=== PATIENT | female | born 1965 | race American Indian/Alaskan Native ===

== ENCOUNTER 2018-12-26 08:07 | Day surgery (SDC) | payer BC ==
[~2018-12-26 08:07] MED LIST: ANCEF/STERILE WATER 2 GM/20 ML 2 GM/20 ML SYRINGE IV NR; LACTATED RINGERS 1,000 ML IV SCH; NEURONTIN PO SCH; TYLENOL PO NR
[2018-12-26] MEDS ORDERED: SUBLIMAZE ONE ×2 (08:55→10:15)
[2018-12-26] MEDS ORDERED: XYLOCAINE 1% 20 mL ONE (08:56)
[2018-12-26] MEDS ORDERED: VERSED ONE (08:56)
[2018-12-26] MEDS ORDERED: MARCAINE-EPI 0.5%-1:200,000 INFILTRATI ONE (08:57)
[2018-12-26] MEDS ORDERED: XYLOCAINE MPF 2% ONE (10:15)
[2018-12-26] MEDS ORDERED: ZOFRAN ONE (10:15)
[2018-12-26] MEDS ORDERED: ZEMURON IV ONE (10:15)
[2018-12-26] MEDS ORDERED: DIPRIVAN 10 MG/ML IV ONE (10:16)
[2018-12-26] MEDS ORDERED: KETALAR ONE (10:16)
[2018-12-26] MEDS ORDERED: DECADRON ONE (10:16)
[2018-12-26] MEDS ORDERED: TORADOL ONE (10:16)
[2018-12-26] MEDS ORDERED: ZOFRAN IV PRN (10:50)
[2018-12-26] MEDS ORDERED: DILAUDID IV PRN (10:50)
--- NOTE | 2018-12-26 10:50 | Anesthesia Day of Surgery ---
Anesthesia Day of Surgery - Day of Surgery Patient Examined: Yes Patient H&P Reviewed: Yes Patient is NPO: Yes
--- NOTE | 2018-12-26 10:50 | Anesthesia Consultation ---
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
[2018-12-26] MEDS ORDERED: NACL 0.9% IR ONE (12:45)
--- NOTE | 2018-12-26 15:12 | Short Stay Summary ---
Short Stay Documentation Date of service: 12/26/18 - History H&P: obtained from office - Allergies and Medications Current Medications: Allergies No Known Allergies Allergy (Verified 12/22/18 16:10) Home Medications Medication Instructions Recorded Confirmed Last Taken Type Aspirin EC 81 mg PO QDAY 12/22/18 12/22/18 12/22/18 09:00 History Colchicine 0.6 mg PO DAILY 12/22/18 12/22/18 12/25/18 15:00 History Losartan [Cozaar] 100 mg PO QDAY 12/22/18 12/22/18 12/25/18 15:00 History Lovastatin [Altoprev] 40 mg PO QHS 12/22/18 12/22/18 12/25/18 15:00 History Vitamin B Complex [Balanced B-50] 1 each PO DAILY 12/22/18 12/22/18 12/25/18 15:00 History amLODIPine [Norvasc] 10 mg PO DAILY 12/22/18 12/26/18 12/26/18 04:00 History hydroCHLOROthiazide [HCTZ] 25 mg PO QDAY 12/22/18 12/22/18 12/25/18 15:00 History metFORMIN [Glucophage] 500 mg PO BID 12/22/18 12/22/18 12/25/18 15:00 History Active Medications Acetaminophen (Tylenol) 1,000 mg PO PREOP NR Stop: 12/26/18 23:59 Last Admin: 12/26/18 09:03 Dose: 1,000 mg Documented by: Celecoxib (Celebrex) 200 mg PO PREOP NR Stop: 12/26/18 23:59 Last Admin: 12/26/18 09:04 Dose: 200 mg Documented by: Gabapentin (Neurontin) 1,200 mg PO PREOP RADHA Stop: 12/26/18 23:59 Last Admin: 12/26/18 09:09 Dose: 1,200 mg Documented by: Hydromorphone HCl (Dilaudid) 0.5 mg IV Q10MIN PRN PRN Reason: Pain , Severe (7-10) Stop: 12/26/18 23:59 Lactated Ringer's (Lactated Ringers) 1,000 mls @ 75 mls/hr IV DIRECT RADHA Last Admin: 12/26/18 09:03 Dose: 75 mls/hr Documented by: Cefazolin Sodium (Ancef/Sterile Water 2 Gm/20 Ml) 2 gm in 20 mls @ 80 mls/hr IV PREOP NR; Protocol Stop: 12/26/18 23:59 Ondansetron HCl (Zofran) 4 mg IV ONCE PRN PRN Reason: Nausea And Vomiting - Physical exam General appearance: no acute distress Neurological: Normal speech - Brief post op/procedure progress note Date of procedure: 12/26/18 (dictation:[id number]) Pre-op diagnosis: ventral hernia Post-op diagnosis: other (incarcerated ventral hernia) Procedure: robotic assisted VHR with mesh IVF - 500cc EBL - 50cc UOP 100cc Anesthesia: GETA Findings: incarcerated ventral hernia. 2 fascial defects Surgeon: CANDIE CARPENTER Estimated blood loss: minimal Pathology: none Condition: stable - Hospital course Hospital course: uneventful - Disposition Condition at discharge: Stable Disposition: DC-01 TO HOME OR SELFCARE Short Stay Discharge Plan Diet: regular Wound: open to air, keep clean and dry Special Instructions: no heavy lifting Additional Instructions: Post Operative Instructions No driving until cleared by surgeon. May shower tomorrow. Pat dry the wound or wounds. After surgery, start with a light diet. Consider having a liquid diet first. If you do well, you can advance to a regular diet as you feel comfortable. Apply an ice pack to the wound or wounds for 10-20 minutes at a time. Do this at least 4-5 times a day. You can do it more if he would like. Alternate the use of ibuprofen and Tylenol for the first 2 days. I want you to take these on a scheduled basis. Take 600 mg of ibuprofen every 6 hours. Take 500 mg of Tylenol every 6 hours. You should alternate these 2 medicines. In other words, beginning with the ibuprofen. After 3 hours, take the Tylenol. Keep alternating the 2 drugs every 3 hours. Do this on a scheduled basis for the first 2 days. After that, you can take them as needed. It is very important that you use the prescription pain medicine only for very severe pain. Do not take the prescription medicine before you try using the ibuprofen and Tylenol. Use the abdominal binder during the day. May remove at night if it is uncomfortable. We will call you in a couple of days to see how youre doing. If you have any questions or concerns, always feel free to call the clinic at any time. WOUND:KEEP CLEAN AND DRY. NO HEAVY LIFTING. CALL FOR F/U APPT. Follow up with: LINDEN GOSS FNP-C [Primary Care Provider] - 7 Days CANDIE CARPENTER MD [Staff Physician] - 7 Days Forms: Outpatient Surgery DC Inst. Prescriptions: traMADol [Ultram 50 MG tab] 50 mg PO Q6HR PRN #30 tablet PRN Reason: Pain , Severe (7-10)
[2018-12-26 16:02] VITALS: BP 157/69
--- NOTE | 2018-12-26 17:27 | Post Anesthesia Evaluation ---
- Post Anesthesia Evaluation Patient Participated: Yes Airway Patent: Yes Stable Respiratory Function: Yes Nausea/Vomiting: No Temp > 96.8F: Yes Pain Manageable: Yes Adequeate Hydration: Yes Anesthesia Complications: No Block Receding Appropriately: Yes Patient on Ventilator: No
--- NOTE | 2018-12-27 02:09 | Operative Report ---
PREOPERATIVE DIAGNOSIS: Symptomatic ventral hernia. POSTOPERATIVE DIAGNOSIS: Incarcerated ventral hernia. PROCEDURES: Robotic-assisted ventral hernia repair with mesh. Robotic-assisted lysis of adhesions. ATTENDING PHYSICIAN: Alicia Cuevas MD ANESTHESIA: General. ESTIMATED BLOOD LOSS: Less than 50 mL. FLUIDS: 500 mL. URINE OUTPUT: 100 mL. FINDINGS: The patient had two fascial defects in the area just above the umbilicus in the midline. The superior one had a large amount of incarcerated omentum. We were able to successfully reduce all of it. The rest of the abdomen was normal. There were adhesions going down the midline. SPECIMENS: None. DRAINS: None. COMPLICATIONS: None. DISPOSITION: Stable, transferred to Recovery. IMPLANTS: Ventralight ST mesh 4 x 6 cm. INDICATIONS: This is a 53-year-old female who presents with a progressively worsening ventral hernia that is causing a great deal of discomfort. CT scan reveals a supraumbilical midline fascial defect with a small opening, but a large amount of contents in the sac. The patient was assessed to be in need of robotic repair. Procedure, risks and benefits were explained to the patient. Risks included but were not limited to infection, bleeding, pain, injury to surrounding structures, possible need for open surgery, possible need for further procedures in the future, possible recurrence. The patient understood and consented. OPERATIVE NOTE: The patient was brought to the operating room and placed on the table in supine position. After adequate general anesthesia was established, the patient was prepped and draped in the usual sterile fashion. Antibiotics had been administered prior to start of the case. SCDs were in place. Timeout was called. I began by placing a Veress needle in the left upper quadrant. I was able to insufflate on the first attempt. This was replaced with a 5 mm port using the Optiview technique to enter the peritoneal cavity. We entered safely. There was no injury to the underlying structures. We could see immediately that there was omentum in the hernia sac. I tried to reduce it with manual compression, but was unable to completely decompress it. We then under direct vision, placed a 12 mm port in the upper midline, an 8 mm port in the right upper quadrant, an 8 mm port in the left lower quadrant, which was used for retraction. This was a bariatric port and then I replaced the 5 under direct vision with another 8 mm port. We docked the robot. I proceeded to the console. I initially began by taking down all the adhesions. A fair amount of time was required to reduce the herniated contents that were incarcerated. I had to divide the scar tissue between the sac and the contents. However, I was able to completely reduce it. There was serosanguineous fluid within the incarcerated mass, probably some trauma to the omentum that led to this fluid accumulation; however, there was no evidence of any necrotic tissue. There was no purulence and on examining the incarcerated contents, everything appeared to be viable. Some of it was just bruised. I then proceeded to take down the additional adhesions down towards the pelvis. I was concerned at looking at it that there was a potential for an internal hernia if this was left intact. Therefore, I took it all down with a combination of sharp dissection and electrocautery. I then proceeded from the superior end to create a preperitoneal flap, peritoneum was taken down all the way down to the fascial defect. The herniated sacs were partially dissected away; however, they were densely adherent; therefore, part of it did remain but as much as we could remove that was removed. We did that from both fascial defects. The fascial defects were about 2 cm in diameter. They were by a small bridge of tissue. Therefore, I elected to place one large mesh and cover both of them when it was time for that. Once the preperitoneal dissection was completed, I then used a 2-0 V-Loc stitch to close the defects with one running stitch. We had a very nice closure with this, I then placed the mesh over that area, using 2-0 Vicryl I then secured it in a few locations just to hold it up so that it laid nicely. It ended up being that the 4 x 6 was a little bit too large, so I trimmed 2 cm from one end, the width worked very well, but the length is a little bit longer than what I originally thought I would need. Once this was excised, I then used the 3-0 V-Loc stitch to close the peritoneal defect. There were a couple of additional openings, one on the side and one at the area where the hernia was, that required closure of those defects. In the end, I ended up having complete peritoneal closure. There was no excess tension. The mesh was completely covered. I felt very good with this repair. It laid very nicely. There was no injury to the underlying structures. We then undocked the robot and I proceeded to remove all the needles that we had inserted as well as the excess mesh. Once this was done, we then desufflated the abdomen. As the 10 mm port had come in on an oblique trajectory and this area was going to be covered by the liver, I did not feel strongly that we needed to try to close this fascial defect. Abdomen was desufflated. All ports were removed. The patient had already received a TAP block before the case. Using 4-0 Monocryl, I closed the skin sites with subcuticular stitches, the left lower quadrant one I excised and old keloid that I had gone through for the port, and then closed the defect with a running 4-0 Monocryl subcuticular stitch. In actuality, our port site was 8 mm. However, I did excise the keloid making the incision appeared much larger, but this was only restricted to the skin. Skin was cleaned and dried. Dermabond was placed. The patient tolerated procedure well. There were no complications. All counts were correct at the end of the case. We removed the [place] catheter at the end of the case. I spoke with her fiance at the end of the case, he was very appreciative for our help. JOB# [id number] GALI/YVAN
== END 2018-12-26 16:50 | disposition home or self-care (01) ==
LOC: OR 08:07
PROVIDERS: ATTEND Surgery
DX: K43.6 Other and unspecified ventral hernia with obstruction, without gangrene (principal); I10 Essential (primary) hypertension; E78.00 Pure hypercholesterolemia, unspecified; G47.30 Sleep apnea, unspecified; K21.9 Gastro-esophageal reflux disease without esophagitis; E11.9 Type 2 diabetes mellitus without complications; M19.90 Unspecified osteoarthritis, unspecified site; E66.9 Obesity, unspecified; Z68.41 Body mass index [BMI] 40.0-44.9, adult; Z90.710 Acquired absence of both cervix and uterus; Z98.891 History of uterine scar from previous surgery; Z87.442 Personal history of urinary calculi; Z79.899 Other long term (current) drug therapy; Z79.82 Long term (current) use of aspirin; Z79.84 Long term (current) use of oral hypoglycemic drugs; Z98.890 Other specified postprocedural states; Z90.49 Acquired absence of other specified parts of digestive tract; Z86.73 Personal history of transient ischemic attack (TIA), and cerebral infarction without residual deficits
CPT/HCPCS: 36415; 49653; 82962; 84132; C1781; J0690; J1100; J1885; J2250; J2405; J2704; J3010; J7120; S2900

== ENCOUNTER 2019-12-18 08:26 | Emergency (ER) | payer OTHER, BC ==
[2019-12-18 08:38] VITALS: BP 202/75
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
== END 2019-12-18 10:17 | disposition left against medical advice (07) ==
LOC: ED 08:26
DX: M25.512 Pain in left shoulder (principal); I10 Essential (primary) hypertension; R73.03 Prediabetes; E78.00 Pure hypercholesterolemia, unspecified; M10.9 Gout, unspecified; E66.9 Obesity, unspecified; Z68.42 Body mass index [BMI] 45.0-49.9, adult; V49.49XA Driver injured in collision with other motor vehicles in traffic accident, initial encounter; Y93.89 Activity, other specified; Y92.89 Other specified places as the place of occurrence of the external cause; Y99.8 Other external cause status
CPT/HCPCS: 99281